=== PATIENT | male | born 1950 | race Caucasian/White ===

== ENCOUNTER 2017-06-20 05:36 | Day surgery (SDC) | payer MEDICARE, BC ==
[2017-06-18 14:14] LABS: HEMATOCRIT 39.8 % (42.0-54.0); HEMOGLOBIN 13.7 g/dL (13.5-17.5); MCH 32.6 pg (26.0-34.0); MCHC 34.4 g/dL (31.0-37.0); MCV 94.8 fL (80.0-100.0); MEAN PLATELET VOLUME 10.7 fL (7.4-10.4); RBC 4.2 10x6/uL (4.20-6.10); RDW 12.8 % (11.5-14.5)
[2017-06-18 14:20] LABS: ANION GAP 10.4 mmol/L (8-16); CALCIUM 9.3 mg/dL (8.5-10.1); CARBON DIOXIDE 29.6 mmol/L (21.0-32.0); CREATININE - SERUM 1.5 mg/dL (0.6-1.3)
[~2017-06-20] VITALS: Ht 182.9 cm; Wt 81.2 kg
[~2017-06-20 05:36] MED LIST: LISINOPRIL-HCTZ1 T13 PO
[2017-06-20 07:15] VITALS: BP 109/69; Ht 182.9 cm; Wt 81.2 kg
--- NOTE | 2017-06-20 11:36 | OP ---
PATIENT NAME: ZULLY HELTON MEDICAL RECORD: [id number] :48 LOCATION:[facility] ADMISSION DATE: SURGEON: RAMON FREY MD DATE OF OPERATION: 06/20/2017 SURGEON: Ramon Frey MD ANESTHESIA: TIVA by Sonido Patel MD PREOPERATIVE DIAGNOSIS: Elevated PSA of 6.89. PROCEDURES: Transrectal ultrasound and prostate biopsy. SPECIMEN: Prostate biopsy cores. FINDINGS: A 47-gram prostate. A small hypoechoic area in the mid left prostate. CLINICAL HISTORY: This is a 67-year-old male who had an elevated PSA upon testing with PSA. He has never had a PSA test previously. The level was 6.89. He has minimal voiding symptoms. He was in the [employer] during the [place] [employer] era; however, he was not sent into [place] and he was not exposed to Agent [place]. Family history is positive for lung cancer in his father but not prostate cancer. On rectal examination, he has an enlarged prostate, which is smooth with no nodules. He comes today to have a prostate biopsy. He is not allergic to any medication. He was given 2 grams of Ance[facility] substance addiction coordinator to the OR. DESCRIPTION OF PROCEDURE: The patient was given IV sedation. He was then placed in the dorsal lithotomy position. The transrectal ultrasound probe was placed into the rectum. Prostate size measurements were made and the calculated size of the prostate is 47 grams. Sextant biopsies were obtained. From each sextant, we obtained at least 3 good cores. Once all the specimens were obtained, the procedure was terminated. The patient will be going home today. I will see him in followup next week to review his pathology results. TRANSINT:[id number] Voice Confirmation ID: [id number] DOCUMENT ID: [id number] RAMON FREY MD at 1136 CC: [id number] DICTATION DATE: 06/20/17 1046 TEST SPECIALIST: 06/20/17 1123 REG [place] [id number] [place] [id number]
--- NOTE | 2017-06-20 16:13 | NUR ---
1250--PT VOIDS, IV DC'D. SVEN DENNEY 4650--DISCHARGE INSTRUCTIONS GIVEN, PT VERBALIZES UNDERSTANDING. PT OFF UNIT VIA WC. SVEN DENNEY
== END 2017-06-20 13:05 | disposition home or self-care (01) ==
LOC: D.OPS 05:36 → D.PAN 10:00 → D.OPS 13:05
PROVIDERS: Anesthesiology
DX: R97.20 Elevated prostate specific antigen [PSA] (principal); I10 Essential (primary) hypertension; K21.9 Gastro-esophageal reflux disease without esophagitis; Z01.812 Encounter for preprocedural laboratory examination

== ENCOUNTER → 2017-07-05 09:58 | Outpatient (CLI) | payer MEDICARE, BC ==
[2017-06-20 07:15] VITALS: BMI 24.3
== END | disposition home or self-care (01) ==
LOC: D.NM 09:58
DX: C61 Malignant neoplasm of prostate (principal)